=== PATIENT | male | born 1970 | race American Indian/Alaskan Native ===

== ENCOUNTER 2024-03-20 21:32 | Emergency (ER) | payer OTHER ==
[~2024-03-20] VITALS: Ht 188 cm; Wt 78.2 kg
[2024-03-20] MEDS: fentaNYL/PF 50MCG/1 ML 2ML syringe IV ONE ×2 (22:37→22:56)
[2024-03-20] MEDS: ondansetron/PF 4mg/2ml inj IV ONE (22:40)
[2024-03-20] MEDS ORDERED: HYDR-3972 PO (23:41)
[2024-03-21 00:09] VITALS: RESP 14
[2024-03-21] MEDS: HYDROcodone/acetaminophen 5mg/325mg tablet PO STA (00:09)
[2024-03-21 00:18] VITALS: BP 125/88; PULSE 79; O2SAT 95
[2024-03-21 00:20] VITALS: TEMP 98
== END 2024-03-21 00:28 | disposition home or self-care (01) ==
LOC: ER 21:33
DX: S82.302A Unspecified fracture of lower end of left tibia, initial encounter for closed fracture (principal); S82.832A Other fracture of upper and lower end of left fibula, initial encounter for closed fracture; W19.XXXA Unspecified fall, initial encounter; Y93.89 Activity, other specified; Y92.89 Other specified places as the place of occurrence of the external cause; Y99.8 Other external cause status
CPT/HCPCS: 29515; 73590; 96374; 99283; J3010; A4615